=== PATIENT | female | born 1950 | race Two or more races ===

== ENCOUNTER 2018-03-07 16:29 | Emergency (ER) | payer OTHER ==
--- NOTE | 2018-03-07 16:58 | EDPHY ---
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 PAIN IN BACK OF KNEE CALF AND BICEP FEMORIS Time Seen by Provider: 03/07/18 16:43 HPI/ROS: CHIEF COMPLAINT: Left leg pain HISTORY OF PRESENT ILLNESS: Patient is a 67-year-old female who states that she has had left leg pain intermittently over the last couple of weeks. It feels like cramping muscles in the back of her thigh and calf. She states that particularly hurts when she has been sitting down for long time he gets up out of the chair. She is able to walk it off however after a few steps. She has noticed some mild swelling in that leg but also notices it in her fingers bilaterally. No recent travel. She is a smoker. She does not take any hormones. History of DVT or PE. She denies any obvious trauma however today she was walking across the street and felt a pop in her left knee and had significant pain. She has not been able to ambulate since that time. She did not fall. She did not twist it. She denies low back pain. She does not have any tingling or weakness. No bowel or bladder abnormalities. REVIEW OF SYSTEMS: Constitutional: denies: chills, fever, recent illness, recent injury EENTM: denies: blurred vision, double vision, nose congestion Respiratory: denies: cough, shortness of breath Cardiac: denies: chest pain, irregular heart rate, lightheadedness, palpitations Gastrointestinal/Abdominal: denies: abdominal pain, diarrhea, nausea, vomiting, blood streaked stools Genitourinary: denies: dysuria, frequency, hematuria, pain Musculoskeletal: See HPI Skin: denies: lesions, rash, jaundice, bruising Neurological: denies: headache, numbness, paresthesia, tingling, dizziness, weakness Hematologic/Lymphatic: denies: blood clots, easy bleeding, easy bruising Immunologic/allergic: denies: HIV/AIDS, transplant EXAM: GENERAL: Well-appearing, well-nourished and in no acute distress. HEAD: Atraumatic, normocephalic. EYES: Pupils equal round and reactive to light, extraocular movements intact, sclera anicteric, conjunctiva are normal. ENT: TMs normal, nares patent, oropharynx clear without exudates. Moist mucous membranes. NECK: Normal range of motion, supple without lymphadenopathy or JVD. LUNGS: Breath sounds clear to auscultation bilaterally and equal. No wheezes rales or rhonchi. HEART: Regular rate and rhythm without murmurs, rubs or gallops. ABDOMEN: Soft, nontender, normoactive bowel sounds. No guarding, no rebound. No masses appreciated. BACK: No CVA tenderness, no spinal tenderness, step-offs or deformities EXTREMITIES: Left leg pain near hamstring region and calf. No obvious swelling. No laxity of knee. No tenderness to the knee. No abrasions or lacerations. NEUROLOGICAL: Cranial nerves II through XII grossly intact. Normal speech, normal gait. 5/5 strength, normal movement in all extremities, normal sensation PSYCH: Normal mood, normal affect. SKIN: Warm, dry, normal turgor, no visible rashes or lesions. Source: Patient Exam Limitations: No limitations - Medical/Surgical History Hx Asthma: No Hx Chronic Respiratory Disease: No Hx Diabetes: No Hx Cardiac Disease: No Hx Renal Disease: No Hx Cirrhosis: No Hx Alcoholism: No Hx HIV/AIDS: No Hx Splenectomy or Spleen Trauma: No - Family History Significant Family History: No pertinent family hx - Social History Smoking Status: Current every day smoker Alcohol Use: Sober Drug Use: None Constitutional: Initial Vital Signs Temperature (C) 36.4 C 03/07/18 16:43 Heart Rate 67 03/07/18 16:43 Respiratory Rate 18 03/07/18 16:43 Blood Pressure 148/84 H 03/07/18 16:43 O2 Sat (%) 96 03/07/18 16:43 O2 Delivery Mode Room Air Allergies/Adverse Reactions: mold Allergy (Verified 03/07/18 16:43) Sulfa (Sulfonamide Antibiotics) Allergy (Verified 03/07/18 16:43) Home Medications: Medication Instructions Recorded predniSONE 60 mg PO DAILY #15 tab 03/07/18 Medical Decision Making - Diagnostics Imaging Results: Imaging Impressions Extremity Venous Study 03/07/18 16:54 Impression: No evidence of deep vein thrombosis in the left leg. Findings and recommendations discussed with KALIA PEREZ at 1800 hour, 2017. Final report concurs with initial preliminary interpretation. Knee X-Ray 03/07/18 16:54 Impression: Normal. No fracture. 2. Left Knee , 3 views History: Pain post trauma. Fall. Findings: There is possibly a vertical fracture coursing through the mid patella seen on the AP and oblique views only. No malalignment or dislocation is identified. There is probably a small knee joint effusion. There is severe hypertrophic change of the patellofemoral joint. Impression: Possible nondisplaced vertical fracture coursing through the mid patella. Consider CT for correlation, if clinically indicated. Results called to Dr. Perez. Hip X-Ray 03/07/18 16:55 Impression: Normal. No fracture. 2. Left Knee , 3 views History: Pain post trauma. Fall. Findings: There is possibly a vertical fracture coursing through the mid patella seen on the AP and oblique views only. No malalignment or dislocation is identified. There is probably a small knee joint effusion. There is severe hypertrophic change of the patellofemoral joint. Impression: Possible nondisplaced vertical fracture coursing through the mid patella. Consider CT for correlation, if clinically indicated. Results called to Dr. Perez. Extremity CT 03/07/18 17:59 Impression: 1. No acute osseous findings. 2. Additional findings as above. Findings discussed with Dr. Kalia Perez on 03/07/2018 at 1850. Imaging: Discussed imaging studies w/ call or contact centre manager Radiologist ED Course/Re-evaluation: The patient's x-ray is questionable for fracture. She does not have any tenderness there but will not bear weight and states that she heard a pop and had severe pain in her knee. I will obtain CT imaging is recommended. Ultrasound is reassuring. 6:55 p.m. the patient has a normal ultrasound and CT as well. She has pain in her left leg that seems to be migrating in no specific pattern. It is difficult to assess. We discussed the possibility of sciatica. I will treat her with steroids and anti-inflammatories. She states that Tylenol and ibuprofen did not work for her and that she will take aspirin. I will also have her follow up with her spine doctor. She is already seeing a [facility] for her knee and he also treats spines. We discussed indications for returning to the emergency department. She is able to get dressed on her own stand up and walk here in the department. She denies weakness numbness or paresthesias. Differential Diagnosis: Partial list of the Differential diagnosis considered include but were not limited to; the left leg pain, DVT, muscular pain, sciatica, tendon injury the and although unlikely based on the history and physical exam, I also considered tendon injury, vascular injury, ischemic leg, cauda equina. I discussed these differential diagnoses and the plan with the patient as well as the usual and expected course. The patient understands that the diagnosis is provisional and that in medicine we are not always correct and that further workup is often warranted. Usual and customary warnings were given. All of the patient's questions were answered. The patient was instructed to return to the emergency department should the symptoms at all worsen or return, otherwise to followup with the physician as we discussed. - Data Points Medications Given: Discontinued Medications Aspirin (Aspirin) 325 mg PO EDNOW ONE Stop: 03/07/18 19:28 Last Admin: 03/07/18 19:30 Dose: 325 mg Prednisone (Prednisone) 60 mg PO EDNOW ONE Stop: 03/07/18 18:57 Last Admin: 03/07/18 19:50 Dose: 60 mg Departure - Departure Disposition: Home, Routine, Self-Care Clinical Impression: Leg pain, left Condition: Fair Instructions: Leg Pain (ED) Additional Instructions: Follow-up with your spine doctor as we discussed, Referrals: SHABBIR TROY [Other] - As per Instructions Prescriptions: predniSONE 60 mg PO DAILY #15 tab
[2018-03-07] MEDS ORDERED: predniSONE 20 MG TAB PO ONE (18:56)
[2018-03-07] MEDS ORDERED: ASPIRIN EC 325 MG TAB PO ONE (19:24)
[2018-03-07] MEDS ORDERED: ASPIRIN 325 MG TAB PO ONE (19:27)
[2018-03-07 19:47] VITALS: BP 178/74
== END 2018-03-07 19:59 | disposition home or self-care (01) ==
LOC: CED 16:29
DX: M79.605 Pain in left leg (principal); F17.200 Nicotine dependence, unspecified, uncomplicated
CPT/HCPCS: 73502; 73562; 73700; 93971; 99285; J7512; L1830